=== PATIENT | male | born 1970 | race Caucasian/White ===

== ENCOUNTER 2021-09-04 19:49 | Emergency (ER) | payer BC ==
[~2021-09-04] VITALS: Ht 177.8 cm; Wt 77.3 kg
[2021-09-04 19:53] VITALS: TEMP 97.5
[2021-09-04 20:40] LABS: BASO % 0.5 % (0.0-2.0); EOS # 0.1 K/mm3 (0.0-0.7); EOS % 1.7 % (0.0-4.0); GRAN # 4.4 K/mm3 (1.4-6.5); GRAN % 59.2 % (42.2-75.2); HEMATOCRIT 42.8 % (42.0-52.0); HEMOGLOBIN 14.8 g/dl (13.5-18.0); LYMPH # 2.4 K/mm3 (1.2-3.4); LYMPH % 32.3 % (20.0-51.0); MEAN CELL VOLUME 88 fl (80.0-100.0); MEAN CORPUSCULAR HEMOGLOBIN 30 pg (27-31); MEAN CORPUSCULAR HGB CONC 35 g/dl (33.0-37.0); MONO # 0.5 K/mm3 (0.1-0.6); MONO % 6.2 % (1.7-9.3); PLATELET COUNT 268 K/mm3 (130-400); RED BLOOD COUNT 4.88 M/mm3 (4.20-5.60); REDCELL DISTRIBUTION WIDTH-CV 13.5 % (11.5-14.5)
[2021-09-04 21:02] LABS: ALBUMIN 4.4 gm/dL (3.5-5.0); BILIRUBIN,TOTAL 0.3 mg/dL (0.2-1.2); CALCIUM 9.2 mg/dL (8.4-10.2); CREATININE, serum 0.99 mg/dL (0.72-1.25); POTASSIUM 3.9 mmol/L (3.5-4.5); TOTAL PROTEIN 8.1 gm/dL (6.2-8.1)
[2021-09-04 22:12] VITALS: BP 136/78; PULSE 72
== END 2021-09-04 22:12 | disposition home or self-care (01) ==
LOC: COL.ER 19:49
PROVIDERS: Nurse Practitioner
DX: R07.81 Pleurodynia (principal); Z28.310 Unvaccinated for COVID-19
CPT/HCPCS: J7030

== ENCOUNTER → 2022-09-15 | Outpatient (CLI) | payer BC | LOC: COL.RAD 06:50 | DX: R10.9 Unspecified abdominal pain (principal) ==

== ENCOUNTER → 2022-10-03 | Outpatient (CLI) | payer BC | LOC: COL.RAD 07:13 | DX: K76.0 Fatty (change of) liver, not elsewhere classified (principal); K76.89 Other specified diseases of liver; E27.9 Disorder of adrenal gland, unspecified; D18.00 Hemangioma unspecified site | CPT/HCPCS: Q9967 ==